=== PATIENT | female | born 1965 | race Caucasian/White ===

== ENCOUNTER 2021-07-11 12:39 | Outpatient (CLI) | payer MEDICAID | END 2021-07-11 12:40 | disposition home or self-care (01) | LOC: BICMAMMO 12:39 | PROVIDERS: ATTEND Nurse Practitioner Family | DX: Z12.31 Encounter for screening mammogram for malignant neoplasm of breast (principal) | CPT/HCPCS: 77067 ==

== ENCOUNTER 2021-10-22 07:23 | Outpatient (CLI) | payer MEDICAID | END 2021-10-22 07:24 | disposition home or self-care (01) | LOC: NM 07:23 | PROVIDERS: ATTEND Internal Medicine Gastroenterology | DX: R11.2 Nausea with vomiting, unspecified (principal); E11.9 Type 2 diabetes mellitus without complications | CPT/HCPCS: 78264; A9541 ==

== ENCOUNTER 2021-10-28 19:00 | Outpatient (CLI) | payer MEDICAID | END 2021-10-28 19:01 | disposition home or self-care (01) | LOC: SLEEPLAB 19:00 | PROVIDERS: ATTEND Family Medicine | DX: G47.9 Sleep disorder, unspecified (principal); G47.33 Obstructive sleep apnea (adult) (pediatric); R53.83 Other fatigue; R09.89 Other specified symptoms and signs involving the circulatory and respiratory systems; R06.83 Snoring; K21.9 Gastro-esophageal reflux disease without esophagitis; I10 Essential (primary) hypertension; E11.9 Type 2 diabetes mellitus without complications; R00.0 Tachycardia, unspecified; E66.9 Obesity, unspecified; Z68.34 Body mass index [BMI] 34.0-34.9, adult | CPT/HCPCS: 95810 ==

== ENCOUNTER 2021-10-31 19:30 | Outpatient (CLI) | payer MEDICAID | END 2021-10-31 19:31 | disposition home or self-care (01) | LOC: SLEEPLAB 19:30 | PROVIDERS: ATTEND Family Medicine | DX: G47.33 Obstructive sleep apnea (adult) (pediatric) (principal); E66.9 Obesity, unspecified; K21.9 Gastro-esophageal reflux disease without esophagitis; R06.83 Snoring; I10 Essential (primary) hypertension; E11.9 Type 2 diabetes mellitus without complications; R53.83 Other fatigue; R09.89 Other specified symptoms and signs involving the circulatory and respiratory systems | CPT/HCPCS: 95811 ==

== ENCOUNTER 2021-11-13 21:35 | Observation (INO) | payer MEDICAID ==
[2021-11-13 23:52] LABS: ALT (SGPT) 32 U/L (8-55); AST (SGOT) 33 U/L (5-34); Alkaline Phosphatase 76 U/L (40-110); Anion Gap 22 mmol/L (10-20); BUN (Urea Nitrogen) 24 mg/dL (9.8-20.1); Bilirubin, Total 0.4 mg/dL (0.2-1.2); Calc. Creatinine Clearance 0 mL/min (70-130); Calcium 9.9 mg/dL (7.8-10.44); Carbon Dioxide 16 mmol/L (22-29); Chloride 98 mmol/L (98-107); Globulin 3.2 g/dL (2.4-3.5); Glucose 199 mg/dL (70-105); Potassium 3.8 mmol/L (3.5-5.1); Protein, Total 7.2 g/dL (6.0-8.3); Sodium 132 mmol/L (136-145)
[2021-11-14 00:07] LABS: Bacteria/HPF 1+ HPF (None Seen); Bilirubin Negative (Negative); Blood, Urine Negative (Negative); Clarity Clear (Clear); Glucose, Urine (Dipstick) 50 mg/dL (Negative); Ketone, Urine Trace mg/dL (Negative); Leukocyte 250 Leu/uL (Negative); Nitrite Negative (Negative); Protein, Urine (Dipstick) Negative (Neg-Trace); RBC/HPF 0-3 HPF (0-3); Specific Gravity, Urine 1.009 (1.002-1.036); Squamous Epithelial 0-3 HPF (0-3); Urobilinogen Normal mg/dL (Less than 2)
[2021-11-14 00:12] LABS: #Basophils 0.1 thou/uL (0.0-0.2); #Eosinphils 0.1 thou/uL (0.0-0.7); #Lymphocytes 2.2 thou/uL (1.20-3.40); #Monocytes 0.7 thou/uL (0.11-0.59); #Neutrophils 2.7 thou/uL (1.40-6.50); %Basophils 0.9 % (0.0-1.0); %Eosinophils 1.9 % (0.0-10.0); %Lymphocytes 38.8 % (21.0-51.0); %Monocytes 11.6 % (0.0-10.0); %Neutrophils 46.9 % (42.0-75.0); Hemoglobin 12.9 g/dL (12.0-16.0); Mean Corpuscular HGB CONC 37.6 g/dL (32.0-36.0); Mean Corpuscular Hemoglobin 33.6 pg (27.0-31.0); Mean Corpuscular Volume 89.2 fL (78.0-98.0); Mean Platelet Volume 6.9 fL (7.4-10.4); Platelet Count 198 thou/uL (130-400); RBC Distribution Width 13.1 % (11.5-14.5); Red Blood Cell (RBC) Count 3.83 mill/uL (4.20-5.40); White Blood Cell (WBC) Count 5.8 thou/uL (4.8-10.8)
[2021-11-14] MEDS ORDERED: cefTRIAXone\\ROCEPHIN 1 GM VIAL ONE (00:52)
[2021-11-14] MEDS ORDERED: SODIUM CHLORIDE 0.9% IV SCH (03:45)
[2021-11-14] MEDS ORDERED: Acetaminophen 325 MG TAB PO PRN (03:45)
[2021-11-14] MEDS ORDERED: Ondansetron PF 4 MG/2 ML Vial IVP PRN (03:45)
[2021-11-14] MEDS ORDERED: Bisacodyl 5 MG TAB PO PRN (03:45)
[2021-11-14] MEDS ORDERED: Senokot S 8.6-50 MG TAB PO PRN (03:45)
[2021-11-14] MEDS ORDERED: Dextrose 5% in Water 1,000 ML IV PRN (04:13)
[2021-11-14] MEDS ORDERED: Dextrose 50% Abboject 50 ML SYRINGE SLOW IVP PRN (04:13)
[2021-11-14] MEDS ORDERED: HumaLOG 300 UNITS/3 ML VIAL SC PRN (04:13)
[2021-11-14 04:20] LABS: Lactic Acid 3.2 mmol/L (0.5-2.2)
[2021-11-14 05:30] VITALS: BMI 35.5
[2021-11-14] MEDS ORDERED: Vancomycin HCl 1.75 GM in Sodium Chloride 0.9% 500 ML IVPB SCH (06:00)
[2021-11-14] MEDS: HumaLOG 300 UNITS/3 ML VIAL SC PRN ×2 (06:11→18:04)
[2021-11-14 07:22] LABS: #Eosinphils 0.1 thou/uL (0.0-0.7); #Monocytes 0.8 thou/uL (0.11-0.59); #Neutrophils 3.8 thou/uL (1.40-6.50); %Basophils 0.7 % (0.0-1.0); %Eosinophils 1.8 % (0.0-10.0); %Lymphocytes 29.7 % (21.0-51.0); %Monocytes 11.7 % (0.0-10.0); %Neutrophils 56.1 % (42.0-75.0); Hemoglobin 11.5 g/dL (12.0-16.0); Mean Corpuscular HGB CONC 33.4 g/dL (32.0-36.0); Mean Corpuscular Hemoglobin 30.1 pg (27.0-31.0); Mean Corpuscular Volume 90.1 fL (78.0-98.0); Platelet Count 165 thou/uL (130-400); RBC Distribution Width 13.2 % (11.5-14.5); Red Blood Cell (RBC) Count 3.83 mill/uL (4.20-5.40); White Blood Cell (WBC) Count 6.8 thou/uL (4.8-10.8)
[2021-11-14 07:43] LABS: Hemoglobin A1c 7.3 % (4.0-6.0)
[2021-11-14 07:45] LABS: ALT (SGPT) 25 U/L (8-55); AST (SGOT) 26 U/L (5-34); Albumin 3.1 g/dL (3.5-5.0); Alkaline Phosphatase 58 U/L (40-110); Anion Gap 16 mmol/L (10-20); BUN (Urea Nitrogen) 18 mg/dL (9.8-20.1); Bilirubin, Total 0.2 mg/dL (0.2-1.2); Calc. Creatinine Clearance 83 mL/min (70-130); Calcium 7.9 mg/dL (7.8-10.44); Carbon Dioxide 16 mmol/L (22-29); Chloride 107 mmol/L (98-107); Globulin 2.3 g/dL (2.4-3.5); Glucose 219 mg/dL (70-105); Potassium 3.6 mmol/L (3.5-5.1); Protein, Total 5.4 g/dL (6.0-8.3); Sodium 135 mmol/L (136-145)
[2021-11-14] MEDS: Heparin 5,000 UNITS/ML VIAL SC SCH ×2 (09:40→20:57)
[2021-11-14] MEDS: Famotidine/PF 20 mg/2ml Vial SLOW IVP SCH (09:41)
[2021-11-14] MEDS: Sodium Chloride 0.9% 1,000 ML IV SCH ×4 (14:30→21:06)
[2021-11-14 17:32] LABS: SARS-CoV-2 PCR by NAA Not Detected (NotDetected)
[2021-11-14] MEDS ORDERED: Carvedilol 25 MG TAB PO SCH (20:00)
[2021-11-14] MEDS: Lisinopril 20 MG TAB PO SCH (20:57)
[2021-11-14] MEDS ORDERED: cefTRIAXone\\ROCEPHIN 2 GM in Sodium Chloride 0.9% 100 ML IVPB SCH (22:00)
[2021-11-14] MEDS ORDERED: diphenhydrAMINE 50 MG/ML VIAL IVP SCH (23:30)
[2021-11-15] MEDS: Sodium Chloride 0.9% 1,000 ML IV SCH (04:25)
[2021-11-15] MEDS ORDERED: Vancomycin 1 GM in Premix Bag 1 BAG IVPB SCH (06:00)
[2021-11-15] MEDS: HumaLOG 300 UNITS/3 ML VIAL SC PRN ×3 (06:10→16:41)
[2021-11-15] MEDS ORDERED: Carvedilol 25 MG TAB PO SCH (08:00)
[2021-11-15] MEDS: Lisinopril 20 MG TAB PO SCH (08:12)
[2021-11-15] MEDS: Famotidine/PF 20 mg/2ml Vial SLOW IVP SCH (08:12)
[2021-11-15] MEDS: Heparin 5,000 UNITS/ML VIAL SC SCH (08:13)
[2021-11-15 11:39] VITALS: TEMP 98
[2021-11-15 12:55] LABS: #Eosinphils 0.1 thou/uL (0.0-0.7); #Lymphocytes 1.3 thou/uL (1.20-3.40); #Monocytes 0.3 thou/uL (0.11-0.59); #Neutrophils 1.8 thou/uL (1.40-6.50); %Basophils 0.2 % (0.0-1.0); %Eosinophils 2.3 % (0.0-10.0); %Lymphocytes 37.6 % (21.0-51.0); %Neutrophils 51.8 % (42.0-75.0); Mean Corpuscular HGB CONC 35.5 g/dL (32.0-36.0); Mean Corpuscular Hemoglobin 32.3 pg (27.0-31.0); Mean Corpuscular Volume 91.1 fL (78.0-98.0); Mean Platelet Volume 7.1 fL (7.4-10.4); Platelet Count 154 thou/uL (130-400); RBC Distribution Width 13.2 % (11.5-14.5); Red Blood Cell (RBC) Count 3.71 mill/uL (4.20-5.40); White Blood Cell (WBC) Count 3.4 thou/uL (4.8-10.8)
[2021-11-15 13:20] LABS: Troponin I 0.027 ng/mL (< 0.028)
[2021-11-15 13:23] LABS: Anion Gap 16 mmol/L (10-20); BUN (Urea Nitrogen) 5 mg/dL (9.8-20.1); Calc. Creatinine Clearance 103 mL/min (70-130); Calcium 9.7 mg/dL (7.8-10.44); Carbon Dioxide 20 mmol/L (22-29); Chloride 103 mmol/L (98-107); Glucose 244 mg/dL (70-105); Potassium 4.3 mmol/L (3.5-5.1); Sodium 135 mmol/L (136-145)
[2021-11-15 14:20] VITALS: BP 164/97
== END 2021-11-15 16:50 | disposition home or self-care (01) ==
LOC: ERS 21:35 → SURG A 11-14 03:04
PROVIDERS: ADMIT Student in an Organized Health Care Education/Training Program; ATTEND Internal Medicine
DX: A41.9 Sepsis, unspecified organism (principal); N30.00 Acute cystitis without hematuria; R65.20 Severe sepsis without septic shock; E11.65 Type 2 diabetes mellitus with hyperglycemia; I95.9 Hypotension, unspecified; N17.9 Acute kidney failure, unspecified; E11.10 Type 2 diabetes mellitus with ketoacidosis without coma; E11.42 Type 2 diabetes mellitus with diabetic polyneuropathy; I10 Essential (primary) hypertension; K21.9 Gastro-esophageal reflux disease without esophagitis; Z87.891 Personal history of nicotine dependence; Z79.4 Long term (current) use of insulin; Z79.899 Other long term (current) drug therapy; Z88.2 Allergy status to sulfonamides; Z88.5 Allergy status to narcotic agent; Z88.8 Allergy status to other drugs, medicaments and biological substances; Z91.040 Latex allergy status; Z20.822 Contact with and (suspected) exposure to COVID-19
CPT/HCPCS: 36415; 36416; 80048; 80053; 81003; 81015; 83036; 83605; 84484; 85025; 87086; 93005; 93010; 96365; 96366; 96372; 96375; 96376; G0378; J0696; J1200; J1644; J1815; J2405; J3370; J3490; J7030; J7050; S0028; U0003; U0005

== ENCOUNTER 2022-08-10 11:09 | Emergency (ER) | payer OTHER ==
[~2022-08-10 11:09] MED LIST: Iopamidol-370 76% 500 ML 1 ML ONE
[2022-08-10 12:21] LABS: Actual Bicarbonate (HCO3v) 25 mEq/L (22-28); Base Excess 0.8 mEq/L (-2.0 to +3.0); Calcium, Ionized (venous) 1.07 mmol/L (1.16-1.32); Chloride (VBG) 99 mmol/L (98-106); Hemoglobin (Hb) 14.4 g/dL (11.7-16.0); Potassium (VBG) 3.97 mmol/L (3.70-5.30); pH (venous) 7.45 (7.32-7.43)
[2022-08-10 12:32] LABS: Bilirubin Negative (Negative); Blood, Urine Negative (Negative); Clarity Clear (Clear); Glucose, Urine (Dipstick) 300 mg/dL (Negative); Ketone, Urine 20 mg/dL (Negative); Leukocyte Negative Leu/uL (Negative); Nitrite Negative (Negative); Protein, Urine (Dipstick) Negative (Neg-Trace); Specific Gravity, Urine 1.015 (1.002-1.036); Urobilinogen Normal mg/dL (Less than 2); pH, Urine 5.5 (5.0-9.0)
[2022-08-10 12:42] LABS: #Eosinphils 0.1 thou/uL (0.0-0.7); #Lymphocytes 1.8 thou/uL (1.20-3.40); #Monocytes 0.4 thou/uL (0.11-0.59); %Basophils 0.8 % (0.0-1.0); %Eosinophils 2.3 % (0.0-10.0); %Lymphocytes 33.1 % (21.0-51.0); %Neutrophils 55.8 % (42.0-75.0); Hemoglobin 14.5 g/dL (12.0-16.0); Mean Corpuscular HGB CONC 35.6 g/dL (32.0-36.0); Mean Corpuscular Hemoglobin 32.1 pg (27.0-31.0); Mean Platelet Volume 7.5 fL (7.4-10.4); Platelet Count 204 thou/uL (130-400); RBC Distribution Width 13.4 % (11.5-14.5); Red Blood Cell (RBC) Count 4.52 mill/uL (4.20-5.40); White Blood Cell (WBC) Count 5.5 thou/uL (4.8-10.8)
[2022-08-10] MEDS ORDERED: Pantoprazole 40 MG VIAL ONE (12:50)
[2022-08-10 13:04] LABS: ALT (SGPT) 27 U/L (8-55); AST (SGOT) 33 U/L (5-34); Albumin 4.4 g/dL (3.5-5.0); Alkaline Phosphatase 61 U/L (40-110); Anion Gap 24 mmol/L (10-20); BUN (Urea Nitrogen) 12 mg/dL (9.8-20.1); Bilirubin, Total 0.6 mg/dL (0.2-1.2); Calc. Creatinine Clearance 0 mL/min (70-130); Calcium 9.5 mg/dL (7.8-10.44); Carbon Dioxide 20 mmol/L (22-29); Chloride 98 mmol/L (98-107); Estimated GFR 70; Globulin 3.8 g/dL (2.4-3.5); Glucose 233 mg/dL (70-105); Lipase 23 U/L (8-78); Potassium 4.5 mmol/L (3.5-5.1); Protein, Total 8.2 g/dL (6.0-8.3); Sodium 137 mmol/L (136-145)
== END 2022-08-10 14:45 | disposition home or self-care (01) ==
LOC: ERS 11:09
DX: E11.65 Type 2 diabetes mellitus with hyperglycemia (principal); E86.0 Dehydration; I10 Essential (primary) hypertension; E11.40 Type 2 diabetes mellitus with diabetic neuropathy, unspecified; Z79.4 Long term (current) use of insulin; R59.0 Localized enlarged lymph nodes
CPT/HCPCS: 36415; 74177; 76536; 80053; 81003; 82010; 82805; 83690; 85025; 93005; 94760; 96361; 96365; C9113; Q9967

== ENCOUNTER 2022-10-10 11:17 | Observation (INO) | payer OTHER ==
[2022-10-10] MEDS ORDERED: Iopamidol-370 76% 500 ML 1 ML ONE (11:38)
[2022-10-10 11:56] LABS: #Eosinphils 0.1 thou/uL (0.0-0.7); #Lymphocytes 1.5 thou/uL (1.20-3.40); #Monocytes 0.5 thou/uL (0.11-0.59); #Neutrophils 3.7 thou/uL (1.40-6.50); %Basophils 0.3 % (0.0-1.0); %Eosinophils 1.3 % (0.0-10.0); %Lymphocytes 25.9 % (21.0-51.0); %Neutrophils 64.4 % (42.0-75.0); Hemoglobin 12.7 g/dL (12.0-16.0); Mean Corpuscular HGB CONC 35.3 g/dL (32.0-36.0); Mean Corpuscular Hemoglobin 33.3 pg (27.0-31.0); Mean Corpuscular Volume 94.4 fl (78.0-98.0); Mean Platelet Volume 6.9 fL (7.4-10.4); Platelet Count 213 10x3/uL (130-400); RBC Distribution Width 14.1 % (11.5-14.5); Red Blood Cell (RBC) Count 3.82 mill/uL (4.20-5.40); White Blood Cell (WBC) Count 5.7 10x3/uL (4.8-10.8)
[2022-10-10] MEDS ORDERED: Ondansetron PF 4 MG/2 ML Vial ONE (11:58)
[2022-10-10 12:02] LABS: ALT (SGPT) 15 U/L (8-55); AST (SGOT) 40 U/L (5-34); Albumin 4.1 g/dL (3.5-5.0); Alkaline Phosphatase 67 U/L (40-110); Anion Gap 23 mmol/L (10-20); BUN (Urea Nitrogen) 12 mg/dL (9.8-20.1); Bilirubin, Total 0.5 mg/dL (0.2-1.2); Calc. Creatinine Clearance 0 mL/min (70-130); Calcium 9.1 mg/dL (7.8-10.44); Carbon Dioxide 20 mmol/L (22-29); Chloride 95 mmol/L (98-107); Estimated GFR 57; Globulin 3.2 g/dL (2.4-3.5); Glucose 220 mg/dL (70-105); Potassium 3.8 mmol/L (3.5-5.1); Protein, Total 7.3 g/dL (6.0-8.3); Sodium 134 mmol/L (136-145)
[2022-10-10 12:09] LABS: Actual Bicarbonate (HCO3v) 23 mEq/L (22-28); Base Excess -1.8 mEq/L (-2.0 to +3.0); Calcium, Ionized (venous) 1.07 mmol/L (1.16-1.32); Chloride (VBG) 96 mmol/L (98-106); Hemoglobin (Hb) 13.5 g/dL (11.7-16.0); Potassium (VBG) 3.89 mmol/L (3.70-5.30); Sodium 135.7 mmol/L (133-146)
[2022-10-10 13:01] LABS: Bilirubin Negative (Negative); Blood, Urine Negative (Negative); Glucose, Urine (Dipstick) 100 mg/dL (Negative); Ketone, Urine 60 mg/dL (Negative); Leukocyte Negative Leu/uL (Negative); Nitrite Negative (Negative); Protein, Urine (Dipstick) Negative (Neg-Trace); Specific Gravity, Urine 1.015 (1.002-1.036); Urobilinogen Normal mg/dL (Less than 2)
[2022-10-10 13:08] LABS: Clarity Hazy (Clear)
[2022-10-10] MEDS ORDERED: Enoxaparin Sodium 40 MG/0.4 ML SYRINGE SC SCH (13:45)
[2022-10-10] MEDS ORDERED: INSULIN REGULAR IN 0.9 % NACL 100 UNIT/100 ML BAG ONE (14:02)
[2022-10-10 14:32] LABS: Hemoglobin A1c 6.6 % (4.0-6.0)
[2022-10-10 15:05] LABS: Anion Gap 21 mmol/L (10-20); BUN (Urea Nitrogen) 9 mg/dL (9.8-20.1); Calc. Creatinine Clearance 0 mL/min (70-130); Carbon Dioxide 20 mmol/L (22-29); Chloride 98 mmol/L (98-107); Estimated GFR 61; Glucose 154 mg/dL (70-105); Potassium 3.7 mmol/L (3.5-5.1); Sodium 135 mmol/L (136-145)
[2022-10-10] MEDS: Sodium Chloride 0.9% 1,000 ML IV SCH ×3 (18:07→19:21)
[2022-10-10 18:46] LABS: Lactic Acid 2.3 mmol/L (0.5-2.2)
[2022-10-10] MEDS: Ondansetron PF 4 MG/2 ML Vial IVP PRN (20:02)
[2022-10-10 20:14] VITALS: BMI 37.4
[2022-10-10] MEDS ORDERED: Metoclopramide HCl 10 MG/2 ML VIAL IVP SCH (22:00)
[2022-10-10] MEDS ORDERED: HYDROcodone/Acetaminophen 5/325 mg Tablet PO SCH (23:00)
[2022-10-11] MEDS: Sodium Chloride 0.9% 1,000 ML IV SCH ×2 (01:59→08:43)
[2022-10-11] MEDS: HYDROcodone/Acetaminophen 5/325 mg Tablet PO PRN ×2 (04:41→11:43)
[2022-10-11] MEDS: Ondansetron PF 4 MG/2 ML Vial IVP PRN (05:33)
[2022-10-11 07:45] LABS: Anion Gap 15 mmol/L (10-20); BUN (Urea Nitrogen) 4 mg/dL (9.8-20.1); Calc. Creatinine Clearance 106 mL/min (70-130); Calcium 8.2 mg/dL (7.8-10.44); Carbon Dioxide 23 mmol/L (22-29); Chloride 104 mmol/L (98-107); Estimated GFR 80; Glucose 175 mg/dL (70-105); Potassium 3.3 mmol/L (3.5-5.1); Sodium 139 mmol/L (136-145)
[2022-10-11] MEDS ORDERED: Enoxaparin Sodium 40 MG/0.4 ML SYRINGE SC SCH (09:00)
[2022-10-11] MEDS ORDERED: Pantoprazole 40 MG VIAL IVP SCH (09:00)
[2022-10-11] MEDS ORDERED: Insulin Regular 300 UNITS/3 ML VIAL SC PRN ×2 (09:21)
[2022-10-11] MEDS ORDERED: Dextrose 50% Abboject 50 ML SYRINGE SLOW IVP PRN (09:21)
[2022-10-11] MEDS ORDERED: Dextrose 5% in Water 1,000 ML IV PRN (09:21)
[2022-10-11 09:46] LABS: Magnesium 1.2 mg/dL (1.6-2.6)
[2022-10-11] MEDS ORDERED: Electrolyte Replacement Protocol FS PRN (11:00)
[2022-10-11] MEDS ORDERED: Electrolyte Replacement Protocol 1 EACH FS SCH (11:00)
[2022-10-11] MEDS ORDERED: Magnesium Sulfate In Water 4 GM in Premix Bag 1 BAG IVPB SCH (11:00)
[2022-10-11 11:36] VITALS: BP 163/89; TEMP 98.2
[2022-10-11] MEDS ORDERED: K-Phos Neutral 250 MG TAB PO SCH (12:00)
[2022-10-11] MEDS ORDERED: Potassium Chloride 20 MEQ TAB PO SCH (12:15)
[2022-10-11] MEDS ORDERED: Sodium Chloride 0.9% 1,000 ML IV SCH (15:08)
[2022-10-11] MEDS ORDERED: Carvedilol 25 MG TAB PO SCH (17:00)
== END 2022-10-11 16:36 | disposition home or self-care (01) ==
LOC: ERS 11:17 → SUATTDRO 11:17 → T4-A 13:44
PROVIDERS: ADMIT Internal Medicine; ATTEND Internal Medicine
DX: E86.0 Dehydration (principal); R11.2 Nausea with vomiting, unspecified; E87.6 Hypokalemia; E87.1 Hypo-osmolality and hyponatremia; E83.39 Other disorders of phosphorus metabolism; E11.10 Type 2 diabetes mellitus with ketoacidosis without coma; E11.65 Type 2 diabetes mellitus with hyperglycemia; E11.40 Type 2 diabetes mellitus with diabetic neuropathy, unspecified; I10 Essential (primary) hypertension; K21.9 Gastro-esophageal reflux disease without esophagitis; K76.0 Fatty (change of) liver, not elsewhere classified; E66.9 Obesity, unspecified; Z68.37 Body mass index [BMI] 37.0-37.9, adult; Z87.891 Personal history of nicotine dependence; Z79.4 Long term (current) use of insulin; Z79.899 Other long term (current) drug therapy; Z88.2 Allergy status to sulfonamides; Z88.5 Allergy status to narcotic agent; Z88.8 Allergy status to other drugs, medicaments and biological substances; Z91.040 Latex allergy status; Z96.41 Presence of insulin pump (external) (internal); Z20.822 Contact with and (suspected) exposure to COVID-19
CPT/HCPCS: 36415; 36416; 74177; 80048; 80053; 81003; 82010; 82805; 83036; 83605; 83690; 83735; 84100; 84145; 84484; 85025; 85652; 86140; 93005; 96361; 96374; 96375; 96376; C9113; G0378; J1815; J2405; J3475; J7050; Q9967; U0003; U0005

== ENCOUNTER 2022-12-17 12:00 | Emergency (ER) | payer OTHER ==
[2022-12-17] MEDS ORDERED: HYDROcodone/Acetaminophen 10/325 mg Tablet ONE (13:09)
[2022-12-17 13:24] LABS: #Eosinphils 0.1 thou/uL (0.0-0.7); #Lymphocytes 1.7 thou/uL (1.20-3.40); #Monocytes 0.8 thou/uL (0.11-0.59); #Neutrophils 3.9 thou/uL (1.40-6.50); %Basophils 0.4 % (0.0-1.0); %Monocytes 11.6 % (0.0-10.0); %Neutrophils 60.1 % (42.0-75.0); Hemoglobin 13.3 g/dL (12.0-16.0); Mean Corpuscular HGB CONC 35.2 g/dL (32.0-36.0); Mean Corpuscular Hemoglobin 32.8 pg (27.0-31.0); Mean Corpuscular Volume 93.3 fl (78.0-98.0); Mean Platelet Volume 7.5 fL (7.4-10.4); Platelet Count 175 10x3/uL (130-400); RBC Distribution Width 14.6 % (11.5-14.5); Red Blood Cell (RBC) Count 4.04 mill/uL (4.20-5.40); White Blood Cell (WBC) Count 6.5 10x3/uL (4.8-10.8)
[2022-12-17 13:49] LABS: ALT (SGPT) 36 U/L (8-55); AST (SGOT) 52 U/L (5-34); Albumin 4.2 g/dL (3.5-5.0); Alkaline Phosphatase 67 U/L (40-110); Anion Gap 17 mmol/L (10-20); BUN (Urea Nitrogen) 11 mg/dL (9.8-20.1); Bilirubin, Total 0.7 mg/dL (0.2-1.2); Calc. Creatinine Clearance 0 mL/min (70-130); Calcium 9.1 mg/dL (7.8-10.44); Carbon Dioxide 26 mmol/L (22-29); Estimated GFR 85; Globulin 3.2 g/dL (2.4-3.5); Glucose 180 mg/dL (70-105); Potassium 3.3 mmol/L (3.5-5.1); Protein, Total 7.4 g/dL (6.0-8.3); Sodium 135 mmol/L (136-145)
[2022-12-17 14:06] LABS: Chloride 95 mmol/L (98-107)
== END 2022-12-17 14:38 | disposition home or self-care (01) ==
LOC: ERS 12:00
DX: S60.211A Contusion of right wrist, initial encounter (principal); E11.40 Type 2 diabetes mellitus with diabetic neuropathy, unspecified; I10 Essential (primary) hypertension; W18.30XA Fall on same level, unspecified, initial encounter; Z87.891 Personal history of nicotine dependence
CPT/HCPCS: 36415; 70450; 70486; 80053; 84484; 85025; 93005

== ENCOUNTER 2023-08-30 16:22 | Emergency (ER) | payer OTHER ==
[~2023-08-30 16:22] MED LIST changes: -Iopamidol-370 76% 500 ML 1 ML ONE; +Iopamidol-370 76% 500 ML MDV (1 ML CHARGE) ONE
[2023-08-30 16:50] LABS: Hematocrit 37.9 % (36.0-47.0); Hemoglobin 13.2 g/dL (12.0-16.0); Manual Diff?? YES; Mean Corpuscular HGB CONC 34.8 g/dL (32.0-36.0); Mean Corpuscular Hemoglobin 34.4 pg (27.0-31.0); Mean Corpuscular Volume 98.7 fl (78.0-98.0); Mean Platelet Volume 9.6 fL (7.4-10.4); Platelet Count 165 10x3/uL (130-400); RBC Distribution Width 14.5 % (11.5-14.5); Red Blood Cell (RBC) Count 3.84 mill/uL (4.20-5.40); White Blood Cell (WBC) Count 4.1 10x3/uL (4.8-10.8)
[2023-08-30 17:09] LABS: Delete Auto Diff?? YES
[2023-08-30 17:12] LABS: Troponin I Less than 0.010 ng/mL (< 0.028)
[2023-08-30 17:13] LABS: Acetaminophen Less than 10 mcg/mL (10.0-30.0); Alcohol 380.5 mg/dL (Less than 10); Lipase 91 U/L (8-78); Salicylate Less than 8.0 mg/dL (15.0-30.0)
[2023-08-30 17:17] LABS: ALT (SGPT) 48 U/L (8-55); AST (SGOT) 163 U/L (5-34); Alkaline Phosphatase 92 U/L (40-110); Anion Gap 27 mmol/L (10-20); BUN (Urea Nitrogen) 10 mg/dL (9.8-20.1); Bilirubin, Total 0.4 mg/dL (0.2-1.2); CK (CPK) 74 U/L (29-168); Calc. Creatinine Clearance 0 mL/min (70-130); Calcium 9.5 mg/dL (7.8-10.44); Carbon Dioxide 19 mmol/L (22-29); Chloride 97 mmol/L (98-107); Estimated GFR 99; Globulin 3.6 g/dL (2.4-3.5); Glucose 139 mg/dL (70-105); Potassium 2.9 mmol/L (3.5-5.1); Protein, Total 7.6 g/dL (6.0-8.3); Sodium 140 mmol/L (136-145)
[2023-08-30 17:21] LABS: Actual Bicarbonate (HCO3a) 20.3 mEq/L (22-28); Analyzer IN Cardio ER; Base Excess (BEa) -3.6 mEq/L (-2.0 to +3.0); CO2 Tension 33.5 mmHg (35.0-45.0); Calcium, Ionized (arterial) 1.07 mmol/L (1.12-1.30); Carboxyhemoglobin (COHb) 0.3 gm% (0.0-3.0); Hematocrit-ABG 39 % (36.0-47.0); Hemoglobin (Hb) 13.1 g/dL (12.0-16.0); O2 Tension (PaO2), arterial 93.1 mmHg (> 80.0); pH, Arterial 7.401 (7.35-7.45)
[2023-08-30 17:22] LABS: Bacteria/HPF None Seen HPF (None Seen); Bilirubin Negative (Negative); Blood, Urine 1+ (Negative); CAUTI Indications for Culture Alt mental st,lethar; Clarity Clear (Clear); Glucose, Urine (Dipstick) Normal (Negative); Ketone, Urine Trace mg/dL (Negative); Leukocyte Negative Leu/uL (Negative); Nitrite Negative (Negative); Protein, Urine (Dipstick) Negative (Neg-Trace); RBC/HPF 0-3 HPF (0-3); Specific Gravity, Urine 1.012 (1.002-1.036); Squamous Epithelial 0-3 HPF (0-3); Urobilinogen Normal mg/dL (Less than 2); WBC/HPF 0-3 HPF (0-3); pH, Urine 5.5 (5.0-9.0)
[2023-08-30 17:24] LABS: ALV-art Gradient 14.755 mmHg (0-20); Potassium - ABG Lab 2.46 mmol/L (3.70-5.30); Puncture Site RRA
[2023-08-30 17:31] LABS: Urine Culture Reflex No No
[2023-08-30 17:35] LABS: Amphetamine Not Detected (NotDetected); Barbiturates Screen Not Detected (NotDetected); Benzodiazepine Screen Not Detected (NotDetected); Cocaine Metabolite Screen Not Detected (NotDetected); Methadone Not Detected (NotDetected); Methamphetamine Not Detected (NotDetected); Opiate Screen Not Detected (NotDetected); Oxycodone Screen Not Detected (NotDetected); Phencyclidine (PCP) Not Detected (NotDetected); THC/Cannabinoid Screen Not Detected (NotDetected); Tricyclic Screen Not Detected (NotDetected)
[2023-08-30 17:39] LABS: Band 3 % (5-11); CellaVision Operator ID LAB.KB; Eosinophils 4 % (0-10); Lymphocytes 30 % (21-51); Monocytes 11 % (0-10); Neutrophil 43 % (42-75); Nucleated RBC (Manual Ct) 1 % (0); Platelet Adequacy Comment Platelets Normal; Polychromasia SLIGHT = 2-3 cells HPF (0-2); Reactive Lymphocytes 7 % (0-10); Stomatocytes SLIGHT = 2-5 cells HPF (0-1); Total Cell Count 100
[2023-08-30 18:32] LABS: SARS-CoV-2 NAA Rapid Test Not Detected (NotDetected)
== END 2023-08-30 19:48 | disposition home or self-care (01) ==
LOC: ERS 16:22
DX: R41.82 Altered mental status, unspecified (principal); F10.129 Alcohol abuse with intoxication, unspecified; E11.40 Type 2 diabetes mellitus with diabetic neuropathy, unspecified; I10 Essential (primary) hypertension; Z87.891 Personal history of nicotine dependence
CPT/HCPCS: 0240U; 36600; 70450; 70496; 70498; 71045; 80306; 80307; 81001; 82010; 82140; 82550; 82805; 82962; 83690; 84484; 87040; 87086; 93005; 36415; 36416; 51701; 80053; 84443; 85025; 96361; 96365; J3411; Q9967

== ENCOUNTER 2024-02-14 16:37 | Inpatient (IN) | payer OTHER, MEDICAID ==
[2024-02-14 17:47] LABS: #Basophils 0.04 10x3/uL (0.0-0.2); %Basophils 0.5 % (0.0-1.0); %Eosinophils 0.8 % (0.0-10.0); %Lymphocytes 13.2 % (21.0-51.0); %Monocytes 19.1 % (0.0-10.0); %Neutrophils 65.6 % (42.0-75.0); Hemoglobin 13.1 g/dL (12.0-16.0); Mean Corpuscular HGB CONC 33.6 g/dL (32.0-36.0); Mean Corpuscular Hemoglobin 34.7 pg (27.0-31.0); Mean Corpuscular Volume 103.4 fL (78.0-98.0); Mean Platelet Volume 9.8 fL (7.4-10.4); Platelet Count 207 10x3/uL (130-400); Red Blood Cell (RBC) Count 3.77 mill/uL (4.20-5.40)
[2024-02-14 18:06] LABS: ALT (SGPT) 25 U/L (8-55); AST (SGOT) 172 U/L (5-34); Albumin 3.4 g/dL (3.5-5.0); Alkaline Phosphatase 203 U/L (40-110); Anion Gap 22 mmol/L (10-20); BUN (Urea Nitrogen) Less than 4 mg/dL (9.8-20.1); Bilirubin, Total 2.1 mg/dL (0.2-1.2); Calc. Creatinine Clearance 0 mL/min (70-130); Calcium 8.9 mg/dL (7.8-10.44); Carbon Dioxide 31 mmol/L (22-29); Chloride 83 mmol/L (98-107); Estimated GFR 99; Globulin 3.5 g/dL (2.4-3.5); Glucose 190 mg/dL (70-105); Lipase 30 U/L (8-78); Protein, Total 6.9 g/dL (6.0-8.3); Sodium 133 mmol/L (136-145)
[2024-02-14 18:09] LABS: Critical Call Chemistry NUR..BCB @1808; Potassium 2.5 mmol/L (3.5-5.1)
[2024-02-14 18:39] LABS: Magnesium 1.5 mg/dL (1.6-2.6)
[2024-02-14] MEDS ORDERED: Potassium Chloride 20 MEQ (100 mL) BAG ONE ×2 (18:51→19:16)
[2024-02-14] MEDS ORDERED: Ketorolac Tromethamine 30 MG (1 mL) VIAL ONE (18:51)
[2024-02-14] MEDS ORDERED: Magnesium 2 GM/50 ML BAG (IN WATER) ONE (19:24)
[2024-02-14 19:28] LABS: Bacteria/HPF None Seen HPF (None Seen); Bilirubin Negative (Negative); Blood, Urine Negative (Negative); CAUTI Indications for Culture Dysuria,urgency,freq; Clarity Clear (Clear); Glucose, Urine (Dipstick) Normal (Negative); Ketone, Urine 40 mg/dL (Negative); Leukocyte Negative Leu/uL (Negative); Nitrite Negative (Negative); Protein, Urine (Dipstick) Negative (Neg-Trace); RBC/HPF 0-3 HPF (0-3); Specific Gravity, Urine 1.006 (1.002-1.036); Squamous Epithelial 0-3 HPF (0-3); Urobilinogen Normal mg/dL (Less than 2); WBC/HPF None Seen HPF (0-3); pH, Urine 6.5 (5.0-9.0)
[2024-02-14 19:29] LABS: Urine Culture Reflex No No
[2024-02-14] MEDS ORDERED: Ondansetron PF 4 MG/2 ML Vial ONE (20:15)
[2024-02-14] MEDS ORDERED: Glucagon 1 MG/ML KIT IM PRN (21:17)
[2024-02-14] MEDS ORDERED: Dextrose 5% in Water 1,000 ML IV PRN (21:17)
[2024-02-14] MEDS ORDERED: Potassium Bicarbonate/Cit Ac 20 MEQ TAB ONE (21:17)
[2024-02-14] MEDS ORDERED: Dextrose 50% Abboject 50 ML SYRINGE SLOW IVP PRN (21:17)
[2024-02-14] MEDS ORDERED: Simethicone Chewable 80 MG TAB PO PRN (21:20)
[2024-02-14 22:01] LABS: Critical Call Chemistry NUR.KB14@2200; Phosphorus 1.4 mg/dL (2.3-4.7)
[2024-02-14] MEDS ORDERED: Electrolyte Replacement Protocol 1 EACH FS PRN (22:15)
[2024-02-14] MEDS: Polyethylene Glycol 3350 17 GM Packet PO SCH (22:49)
[2024-02-14 23:05] LABS: Lactic Acid 2.1 mmol/L (0.5-2.2)
[2024-02-14 23:19] VITALS: BMI 33.0
[2024-02-15 01:18] LABS: Anion Gap 19 mmol/L (10-20); BUN (Urea Nitrogen) Less than 4 mg/dL (9.8-20.1); Calc. Creatinine Clearance 103 mL/min (70-130); Carbon Dioxide 31 mmol/L (22-29); Chloride 87 mmol/L (98-107); Estimated GFR 91; Glucose 169 mg/dL (70-105); Potassium 2.9 mmol/L (3.5-5.1); Sodium 134 mmol/L (136-145)
[2024-02-15] MEDS: PHOS-NAK 1 PKT PACK PO SCH (01:38)
[2024-02-15 04:31] LABS: Hematocrit 34.2 % (36.0-47.0); Hemoglobin 11.6 g/dL (12.0-16.0); Mean Corpuscular HGB CONC 33.9 g/dL (32.0-36.0); Mean Corpuscular Hemoglobin 34.6 pg (27.0-31.0); Mean Corpuscular Volume 102.1 fL (78.0-98.0); Mean Platelet Volume 11.1 fL (7.4-10.4); Platelet Count 218 10x3/uL (130-400); RBC Distribution Width 16.5 % (11.5-14.5); Red Blood Cell (RBC) Count 3.35 mill/uL (4.20-5.40)
[2024-02-15 05:12] LABS: ALT (SGPT) 21 U/L (8-55); AST (SGOT) 159 U/L (5-34); Albumin 3.1 g/dL (3.5-5.0); Alkaline Phosphatase 179 U/L (40-110); Anion Gap 21 mmol/L (10-20); BUN (Urea Nitrogen) Less than 4 mg/dL (9.8-20.1); Bilirubin, Total 2.6 mg/dL (0.2-1.2); Calc. Creatinine Clearance 109 mL/min (70-130); Carbon Dioxide 28 mmol/L (22-29); Chloride 89 mmol/L (98-107); Critical Call Chemistry NUR.MA16@0510; Estimated GFR 97; Globulin 3.6 g/dL (2.4-3.5); Glucose 170 mg/dL (70-105); Phosphorus 1.4 mg/dL (2.3-4.7); Potassium 3.6 mmol/L (3.5-5.1); Protein, Total 6.7 g/dL (6.0-8.3); Sodium 134 mmol/L (136-145)
[2024-02-15 05:14] LABS: Band 12 % (5-11); Eosinophils 2 % (0-10); Large Platelets 2.9 % (0-5); Lymphocytes 8 % (21-51); Macrocytosis SLIGHT = 6-15 cells HPF (0-5); Monocytes 17 % (0-10); Neutrophil 61 % (42-75); Platelet Adequacy Comment Platelets Normal; Polychromasia SLIGHT = 2-3 cells HPF (0-2); Reactive Lymphocytes 1 % (0-10); Smudge Cells 19.2 %
[2024-02-15] MEDS: Potassium Chloride 20 MEQ in Premix 1 BAG IVPB SCH (05:45)
[2024-02-15] MEDS: Magnesium 2 GM/50 ML(in water) 2 GM in Premix 1 BAG IVPB SCH (09:33)
[2024-02-15] MEDS: Senokot S 8.6-50 MG TAB PO SCH (09:33)
[2024-02-15] MEDS: Polyethylene Glycol 3350 17 GM Packet PO SCH (09:33)
[2024-02-15] MEDS: Ondansetron PF 4 MG/2 ML Vial IVP PRN (09:40)
[2024-02-15 11:01] LABS: HBSAg Index 0.25 S/CO (0-0.99); Hep B Surf Ag Non-Reactive S/CO (NonReactive)
[2024-02-15 11:02] LABS: Hep C IgG Ab Non-Reactive S/CO (NonReactive); Hep C Index 0.21 S/CO (0-0.79)
[2024-02-15 11:03] LABS: Hep A IgM AB Non-Reactive (NonReactive); Hep A IgM S/CO 0.15 S/CO (0-0.79)
[2024-02-15] MEDS: Acetaminophen 325 MG TAB PO PRN (13:00)
[2024-02-15] MEDS ORDERED: Albuterol 200 PUFF INH INH ONE (22:24)
[2024-02-15] MEDS: Albuterol 200 PUFF (6.7GM INHALER) INH PRN (22:24)
[2024-02-16] MEDS ORDERED: Albuterol 200 PUFF INH INH ONE ×2 (05:08→18:41)
[2024-02-16 05:24] LABS: #Basophils 0.03 10x3/uL (0.0-0.2); %Basophils 0.4 % (0.0-1.0); %Eosinophils 1.3 % (0.0-10.0); %Lymphocytes 17.2 % (21.0-51.0); %Monocytes 18.9 % (0.0-10.0); %Neutrophils 61.6 % (42.0-75.0); ALT (SGPT) 19 U/L (8-55); AST (SGOT) 127 U/L (5-34); Alkaline Phosphatase 181 U/L (40-110); Anion Gap 16 mmol/L (10-20); BUN (Urea Nitrogen) Less than 4 mg/dL (9.8-20.1); Bilirubin, Total 2.5 mg/dL (0.2-1.2); Calc. Creatinine Clearance 123 mL/min (70-130); Calcium 8.1 mg/dL (7.8-10.44); Carbon Dioxide 31 mmol/L (22-29); Chloride 94 mmol/L (98-107); Estimated GFR 101; Globulin 2.9 g/dL (2.4-3.5); Glucose 170 mg/dL (70-105); Hematocrit 36.4 % (36.0-47.0); Hemoglobin 11.8 g/dL (12.0-16.0); Magnesium 1.8 mg/dL (1.6-2.6); Mean Corpuscular HGB CONC 32.4 g/dL (32.0-36.0); Mean Corpuscular Hemoglobin 34.4 pg (27.0-31.0); Mean Corpuscular Volume 106.1 fL (78.0-98.0); Mean Platelet Volume 10.2 fL (7.4-10.4); Platelet Count 177 10x3/uL (130-400); Potassium 2.9 mmol/L (3.5-5.1); Protein, Total 5.9 g/dL (6.0-8.3); RBC Distribution Width 17.6 % (11.5-14.5); Red Blood Cell (RBC) Count 3.43 mill/uL (4.20-5.40); Sodium 138 mmol/L (136-145)
[2024-02-16] MEDS: Potassium Chloride 20 MEQ TAB PO SCH (08:09)
[2024-02-16] MEDS: Magnesium 2 GM/50 ML(in water) 2 GM in Premix 1 BAG IVPB SCH (08:10)
[2024-02-16] MEDS: Magnesium Oxide 400 MG TAB PO SCH (08:26)
[2024-02-16] MEDS: Potassium Bicarbonate/Cit Ac 20 MEQ TAB PO SCH (08:26)
[2024-02-16] MEDS: PHOS-NAK 1 PKT PACK PO SCH (08:27)
[2024-02-16] MEDS: Fluticasone Propionate Nasal Spray 16 gm Bottle NASAL SCH (08:27)
[2024-02-16] MEDS ORDERED: Non-Formulary Item 1 EACH (Magnesium Oxide [Magnesium Oxide] 400 MG Tablet) PO SCH (09:00)
[2024-02-16] MEDS ORDERED: PHOS-NAK 1 PKT PACK PO SCH (09:00)
[2024-02-16 09:24] LABS: Hemoglobin A1c 5.2 % (4.0-6.0)
[2024-02-16] MEDS: Sodium Chloride 0.9% 1,000 ML IV SCH (15:38)
[2024-02-16] MEDS: HumaLOG 300 UNITS/3 ML VIAL SC PRN (22:06)
[2024-02-17 06:17] LABS: Hematocrit 33.1 % (36.0-47.0); Hemoglobin 10.8 g/dL (12.0-16.0); Mean Corpuscular HGB CONC 32.6 g/dL (32.0-36.0); Mean Corpuscular Hemoglobin 35.1 pg (27.0-31.0); Mean Corpuscular Volume 107.5 fL (78.0-98.0); Platelet Count 191 10x3/uL (130-400); RBC Distribution Width 18.4 % (11.5-14.5); Red Blood Cell (RBC) Count 3.08 mill/uL (4.20-5.40)
[2024-02-17 06:18] LABS: ALT (SGPT) 17 U/L (8-55); AST (SGOT) 139 U/L (5-34); Albumin 2.7 g/dL (3.5-5.0); Alkaline Phosphatase 156 U/L (40-110); Anion Gap 10 mmol/L (10-20); BUN (Urea Nitrogen) Less than 4 mg/dL (9.8-20.1); Bilirubin, Total 3.9 mg/dL (0.2-1.2); Calc. Creatinine Clearance 121 mL/min (70-130); Carbon Dioxide 32 mmol/L (22-29); Chloride 97 mmol/L (98-107); Estimated GFR 101; Globulin 2.7 g/dL (2.4-3.5); Glucose 175 mg/dL (70-105); Magnesium 2.1 mg/dL (1.6-2.6); Potassium 3.4 mmol/L (3.5-5.1); Protein, Total 5.4 g/dL (6.0-8.3); Sodium 136 mmol/L (136-145)
[2024-02-17 06:54] LABS: Anisocytosis SLIGHT = 6-15 cells HPF (0-5); Band 5 % (5-11); Eosinophils 2 % (0-10); Large Platelets 4.8 % (0-5); Lymphocytes 11 % (21-51); Macrocytosis SLIGHT = 6-15 cells HPF (0-5); Metamyelocyte 1 % (0-0); Monocytes 11 % (0-10); Myelocyte 1 % (0-0); Neutrophil 70 % (42-75); Nucleated RBC (Manual Ct) 2 % (0); Platelet Adequacy Comment Platelets Normal; Polychromasia MODERATE = 3-4 cells HPF (0-2); Reactive Lymphocytes 1 % (0-10)
[2024-02-17 08:13] LABS: Phosphorus 1.6 mg/dL (2.3-4.7)
[2024-02-17] MEDS: Potassium Bicarbonate/Cit Ac 20 MEQ TAB PO SCH (08:20)
[2024-02-17] MEDS: PHOS-NAK 1 PKT PACK PO SCH (10:00)
[2024-02-17] MEDS ORDERED: Magnevist 469MG/ML 20 ML VIAL ONE (10:23)
[2024-02-17] MEDS: HumaLOG 300 UNITS/3 ML VIAL SC PRN (13:36)
[2024-02-17 14:10] LABS: Amphetamine Not Detected (NotDetected); Barbiturates Screen Not Detected (NotDetected); Benzodiazepine Screen Not Detected (NotDetected); Cocaine Metabolite Screen Not Detected (NotDetected); Methadone Not Detected (NotDetected); Methamphetamine Not Detected (NotDetected); Opiate Screen Not Detected (NotDetected); Oxycodone Screen Not Detected (NotDetected); Phencyclidine (PCP) Not Detected (NotDetected); THC/Cannabinoid Screen Not Detected (NotDetected); Tricyclic Screen Not Detected (NotDetected)
[2024-02-17 14:47] LABS: INR-International Normal Ratio 1.4; Prothrombin Time 16.8 sec (12.0-14.7)
[2024-02-17 15:01] LABS: Iron 85 ug/dL (50-170); Iron Binding Capacity, Total 240 mcg/dL (265-497)
[2024-02-17 16:12] LABS: Hepatitis B Core IgM Abs Non-Reactive S/CO (NonReactive)
[2024-02-18 05:12] LABS: #Basophils 0.05 10x3/uL (0.0-0.2); %Basophils 0.4 % (0.0-1.0); %Eosinophils 1.4 % (0.0-10.0); %Lymphocytes 14.7 % (21.0-51.0); %Monocytes 19.3 % (0.0-10.0); %Neutrophils 62.6 % (42.0-75.0); Hematocrit 37.1 % (36.0-47.0); Hemoglobin 11.7 g/dL (12.0-16.0); Mean Corpuscular HGB CONC 31.5 g/dL (32.0-36.0); Mean Corpuscular Hemoglobin 34.4 pg (27.0-31.0); Mean Corpuscular Volume 109.1 fL (78.0-98.0); Platelet Count 228 10x3/uL (130-400); RBC Distribution Width 19.5 % (11.5-14.5)
[2024-02-18 05:25] LABS: ALT (SGPT) 21 U/L (8-55); AST (SGOT) 189 U/L (5-34); Albumin 2.9 g/dL (3.5-5.0); Alkaline Phosphatase 189 U/L (40-110); Anion Gap 16 mmol/L (10-20); BUN (Urea Nitrogen) 6 mg/dL (9.8-20.1); Bilirubin, Total 5.5 mg/dL (0.2-1.2); Calc. Creatinine Clearance 129 mL/min (70-130); Calcium 8.3 mg/dL (7.8-10.44); Carbon Dioxide 25 mmol/L (22-29); Chloride 96 mmol/L (98-107); Estimated GFR 103; Globulin 3.5 g/dL (2.4-3.5); Glucose 128 mg/dL (70-105); Phosphorus 1.9 mg/dL (2.3-4.7); Potassium 4.3 mmol/L (3.5-5.1); Protein, Total 6.4 g/dL (6.0-8.3); Sodium 133 mmol/L (136-145)
[2024-02-18] MEDS: PHOS-NAK 1 PKT PACK PO SCH (11:40)
[2024-02-18 16:14] LABS: Alpha-1-Antitrypsin 214 mg/dL (101-187)
[2024-02-18] MEDS ORDERED: Albuterol 200 PUFF INH INH PRN (16:53)
[2024-02-19 04:41] LABS: Mean Corpuscular HGB CONC 33.3 g/dL (32.0-36.0); Mean Corpuscular Volume 105.1 fL (78.0-98.0); Mean Platelet Volume 10.2 fL (7.4-10.4); Platelet Count 206 10x3/uL (130-400); RBC Distribution Width 19.4 % (11.5-14.5); Red Blood Cell (RBC) Count 3.14 mill/uL (4.20-5.40)
[2024-02-19 05:04] LABS: ALT (SGPT) 17 U/L (8-55); AST (SGOT) 154 U/L (5-34); Albumin 2.6 g/dL (3.5-5.0); Alkaline Phosphatase 174 U/L (40-110); Anion Gap 15 mmol/L (10-20); BUN (Urea Nitrogen) 7 mg/dL (9.8-20.1); Bilirubin, Total 5.3 mg/dL (0.2-1.2); Calc. Creatinine Clearance 134 mL/min (70-130); Calcium 8.4 mg/dL (7.8-10.44); Carbon Dioxide 26 mmol/L (22-29); Chloride 98 mmol/L (98-107); Estimated GFR 104; Glucose 154 mg/dL (70-105); Potassium 3.6 mmol/L (3.5-5.1); Protein, Total 5.6 g/dL (6.0-8.3); Sodium 135 mmol/L (136-145)
[2024-02-19 05:06] LABS: Phosphorus 2.3 mg/dL (2.3-4.7)
[2024-02-19 06:19] LABS: Anisocytosis MODERATE=16-30 cells HPF (0-5); Band 3 % (5-11); Eosinophils 3 % (0-10); Large Platelets 2.9 % (0-5); Lymphocytes 11 % (21-51); Macrocytosis MODERATE=16-30 cells HPF (0-5); Monocytes 21 % (0-10); Neutrophil 63 % (42-75); Platelet Adequacy Comment Platelets Normal; Polychromasia MODERATE = 3-4 cells HPF (0-2); Smudge Cells 8.7 %; Vacuoles SLIGHT
[2024-02-19 08:31] VITALS: BP 115/63; TEMP 98.6
[2024-02-19 12:16] LABS: Smooth Muscle Total ABS 7 Units (0-19)
[2024-02-23 11:59] LABS: ANA Symphony (Qualitative) Negative (Negative); ANA Symphony (Quantitative) 0.3 Ratio (< 0.7 Negative); EliA Vaculitis New Method **** NEW METHOD ****; Mitochondrial Ab 0.9 U/mL (<4 Negative); dsDNA IgG Antibody 4.2 IU/mL (<10 Negative)
== END 2024-02-19 12:00 | disposition home or self-care (01) | DRG 433 ==
LOC: ERS 16:37 → 2SW 21:15 → OBSVTOIN 02-16 08:36
PROVIDERS: ADMIT Internal Medicine; ATTEND Internal Medicine
DX: K74.60 Unspecified cirrhosis of liver (principal); E87.20 Acidosis, unspecified; I10 Essential (primary) hypertension; E11.40 Type 2 diabetes mellitus with diabetic neuropathy, unspecified; K21.9 Gastro-esophageal reflux disease without esophagitis; E66.9 Obesity, unspecified; E87.6 Hypokalemia; E83.42 Hypomagnesemia; E80.6 Other disorders of bilirubin metabolism; K59.00 Constipation, unspecified; Z88.2 Allergy status to sulfonamides; Z91.040 Latex allergy status; Z79.51 Long term (current) use of inhaled steroids; Z79.899 Other long term (current) drug therapy; Z90.49 Acquired absence of other specified parts of digestive tract; Z90.710 Acquired absence of both cervix and uterus; Z79.4 Long term (current) use of insulin; Z68.33 Body mass index [BMI] 33.0-33.9, adult
CPT/HCPCS: 36415; 36416; 74176; 74177; 74183; 80048; 80053; 80074; 80306; 81001; 82103; 82248; 82607; 82728; 83036; 83516; 83540; 83550; 83605; 83690; 83735; 84100; 84425; 85025; 85610; 86015; 86038; 86225; 86803; 87040; 93005; 96361; 96365; 96366; 96368; 96375; 96376; A9579; G0378; J1815; J1885; J2405; J3475; J3480; J7050; Q9967

== ENCOUNTER 2024-12-06 09:33 | Inpatient (IN) | payer OTHER, MEDICAID ==
[2024-12-06] MEDS ORDERED: cefTRIAXone (ROCEPHIN) 2 GM VIAL ONE (09:59)
[2024-12-06] MEDS ORDERED: Sodium Chloride 0.9% 100 ML ONE (10:00)
[2024-12-06] MEDS ORDERED: Pantoprazole 40 MG VIAL ONE ×2 (10:00→10:41)
[2024-12-06 10:18] LABS: Hemoglobin 10.1 g/dL (12.0-16.0); Mean Corpuscular HGB CONC 31.6 g/dL (32.0-36.0); Mean Corpuscular Hemoglobin 26.4 pg (27.0-31.0); Mean Corpuscular Volume 83.8 fL (78.0-98.0); Platelet Count 142 10x3/uL (130-400); Red Blood Cell (RBC) Count 3.82 mill/uL (4.20-5.40)
[2024-12-06] MEDS ORDERED: Promethazine HCl 25 MG/ML VIAL ONE (10:18)
[2024-12-06] MEDS ORDERED: Octreotide Acetate 500 MCG/ML VIAL ONE (10:27)
[2024-12-06 10:30] LABS: ALT (SGPT) 50 U/L (8-55); AST (SGOT) 243 U/L (5-34); Albumin 3.2 g/dL (3.4-4.8); Alkaline Phosphatase 189 U/L (40-110); Anion Gap 25 mmol/L (10-20); BUN (Urea Nitrogen) 5 mg/dL (9.8-20.1); Bilirubin, Total 2.1 mg/dL (0.2-1.2); Calc. Creatinine Clearance 0 mL/min (70-130); Carbon Dioxide 19 mmol/L (23-31); Chloride 93 mmol/L (98-107); Estimated GFR 86; Globulin 4.6 g/dL (2.4-3.5); Glucose 256 mg/dL (80-115); Lipase 17 U/L (8-78); Magnesium 1.3 mg/dL (1.6-2.6); Potassium 4.2 mmol/L (3.5-5.1); Protein, Total 7.8 g/dL (5.8-8.1); Sodium 133 mmol/L (136-145)
[2024-12-06] MEDS ORDERED: Octreotide Acetate 1,250 MCG in Sodium Chloride 0.9% 250 ML 250 ML IVPB SCH (10:30)
[2024-12-06] MEDS ORDERED: Pantoprazole 80 MG, Admixture Fee 1 EACH in Sodium Chloride 0.9% 100 ML IVPB SCH (10:30)
[2024-12-06 10:32] LABS: Acetaminophen Less than 10 mcg/mL (Less than 10); Alcohol Less than 10.0 mg/dL (Less than 10); Salicylate Less than 8.0 mg/dL (Less than 8.0)
[2024-12-06] MEDS ORDERED: Acetaminophen 325 MG TAB PO PRN (10:37)
[2024-12-06] MEDS ORDERED: Sodium Chloride 0.9% 100 ML BAG ONE (10:41)
[2024-12-06] MEDS ORDERED: Ipratropium/Albuterol 3 ML NEB NEB PRN (10:42)
[2024-12-06] MEDS ORDERED: Pantoprazole 80 MG in Sodium Chloride 0.9% 100 ML IVP SCH (10:45)
[2024-12-06] MEDS ORDERED: Magnesium 2 GM/50 ML BAG (IN WATER) ONE (10:47)
[2024-12-06 10:49] LABS: Bilirubin Negative (Negative); Blood, Urine Negative (Negative); CAUTI Indications for Culture Pelvic or flank pain; Clarity Clear (Clear); Glucose, Urine (Dipstick) 30 mg/dL (Negative); Ketone, Urine 10 mg/dL (Negative); Leukocyte 250 Leu/uL (Negative); Nitrite Negative (Negative); Protein, Urine (Dipstick) Negative (Neg-Trace); RBC/HPF 0-3 HPF (0-3); Squamous Epithelial None Seen HPF (0-3); Urobilinogen Normal mg/dL (Less than 2); WBC/HPF 0-3 HPF (0-3)
[2024-12-06 10:58] LABS: Analyzer IN Cardio ER; Base Excess -4.7 mEq/L (-2.0 to +3.0); Calcium, Ionized (venous) 0.99 mmol/L (1.16-1.32); Chloride (VBG) 95 mmol/L (98-106); Hematocrit-VBG 26 % (36.0-47.0); Potassium (VBG) 4.83 mmol/L (3.70-5.30); Sodium 130 mmol/L (133-146); pH (venous) 7.372 (7.32-7.43)
[2024-12-06] MEDS ORDERED: Insulin Lispro 100 UNIT/ML 10 ML VIAL SC PRN ×2 (10:59)
[2024-12-06] MEDS ORDERED: Glucagon 1 MG/ML KIT IM PRN (10:59)
[2024-12-06] MEDS ORDERED: Dextrose 5% in Water 1,000 ML IV PRN (10:59)
[2024-12-06] MEDS ORDERED: Dextrose 50% Abboject 50 ML SYRINGE SLOW IVP PRN (10:59)
[2024-12-06 11:00] LABS: Bacteria/HPF 2+ HPF (None Seen)
[2024-12-06 11:01] LABS: Urine Culture Reflex No No
[2024-12-06 11:16] LABS: INR-International Normal Ratio 1.7; PTT 37.4 sec (22.9-36.1); Prothrombin Time 19.8 sec (12.0-14.7)
[2024-12-06 11:24] LABS: Band 6 % (5-11); Lymphocytes 25 % (21-51); Monocytes 9 % (0-10); Neutrophil 60 % (42-75); Ovalocytes SLIGHT = 2-5 cells (100X) (0-1/hpf); Plasma Cells 0 % (0-0); Platelet Adequacy Comment Appears Adequate; Total Cell Count 100
[2024-12-06 12:33] LABS: #Basophils 0.03 10x3/uL (0.0-0.2); #Eosinophils Less than 0.03 10x3/uL (0.0-0.7); %Basophils 0.5 % (0.0-1.0); %Eosinophils 0.2 % (0.0-10.0); %Lymphocytes 8.2 % (21.0-51.0); %Monocytes 25.8 % (0.0-10.0); %Neutrophils 64.7 % (42.0-75.0); Hematocrit 27.3 % (36.0-47.0); Hemoglobin 8.4 g/dL (12.0-16.0); Mean Corpuscular HGB CONC 30.8 g/dL (32.0-36.0); Mean Corpuscular Hemoglobin 26.8 pg (27.0-31.0); Mean Corpuscular Volume 86.9 fL (78.0-98.0); Mean Platelet Volume 9.4 fL (7.4-10.4); Platelet Count 96 10x3/uL (130-400); RBC Distribution Width 22.1 % (11.5-14.5); Red Blood Cell (RBC) Count 3.14 mill/uL (4.20-5.40)
[2024-12-06] MEDS ORDERED: PHENYLEPHRINE-NS 100 MCG/ML 10 ML SYRINGE ONE (12:53)
[2024-12-06] MEDS ORDERED: SUCCINYLCHOLINE/SOD CL,ISO/PF 200 MG/10 ML SYRINGE FS ONE (12:53)
[2024-12-06] MEDS ORDERED: Lidocaine 1% PF 5 ML VIAL ONE (12:54)
[2024-12-06] MEDS ORDERED: ePHEDrine Sulfate 50 MG/10 ML VIAL ONE (12:54)
[2024-12-06] MEDS ORDERED: PROPOFOL 20 ML ONE (12:54)
[2024-12-06 13:10] LABS: Anisocytosis SLIGHT = 6-15 cells HPF (0-5); Band 10 % (5-11); Large Platelets 7.9 % (0-5); Lymphocytes 4 % (21-51); Monocytes 15 % (0-10); Neutrophil 70 % (42-75); Platelet Adequacy Comment Platelets Decreased; Polychromasia SLIGHT = 2-3 cells HPF (0-2); Reactive Lymphocytes 1 % (0-10); Smudge Cells 15.8 %
[2024-12-06 13:32] LABS: Lactic Acid 5.93 mmol/L (0.5-2.2)
[2024-12-06] MEDS ORDERED: Ondansetron PF 4 MG/2 ML Vial ONE (13:40)
[2024-12-06] MEDS ORDERED: fentaNYL 50 mcg/mL 1 mL Vial ONE ×2 (13:48→14:07)
[2024-12-06 15:27] VITALS: BMI 15.0
[2024-12-06] MEDS: Sodium Chloride 0.9% 1,000 ML IV SCH (15:45)
[2024-12-06] MEDS: Morphine 2 MG/ML VIAL SLOW IVP PRN (16:12)
[2024-12-06] MEDS: Ondansetron PF 4 MG/2 ML Vial IVP PRN (16:15)
[2024-12-06 17:19] LABS: Hematocrit 22.8 % (36.0-47.0); Hemoglobin 7.1 g/dL (12.0-16.0)
[2024-12-06 17:26] LABS: Lactic Acid 3.74 mmol/L (0.5-2.2)
[2024-12-06 17:30] LABS: Anion Gap 13 mmol/L (10-20); BUN (Urea Nitrogen) 5 mg/dL (9.8-20.1); Calc. Creatinine Clearance 43 mL/min (70-130); Calcium 7.6 mg/dL (7.8-10.44); Carbon Dioxide 23 mmol/L (23-31); Chloride 102 mmol/L (98-107); Estimated GFR 83; Glucose 227 mg/dL (80-115); Potassium 5.3 mmol/L (3.5-5.1); Sodium 133 mmol/L (136-145)
[2024-12-06] MEDS ORDERED: Promethazine HCl 12.5 MG in Sodium Chloride 0.9% 50 ML IVPB PRN (19:39)
[2024-12-06] MEDS: Ondansetron PF 4 MG/2 ML Vial IVP SCH (19:46)
[2024-12-06] MEDS: diphenhydrAMINE 25 MG CAP PO SCH (20:23)
[2024-12-06] MEDS: Pantoprazole 40 MG VIAL IVP SCH (22:16)
[2024-12-07] MEDS: Simethicone Chewable 80 MG TAB PO SCH (01:25)
[2024-12-07 05:22] LABS: Hematocrit 25.8 % (36.0-47.0); Hemoglobin 8.1 g/dL (12.0-16.0); Mean Corpuscular HGB CONC 31.4 g/dL (32.0-36.0); Mean Corpuscular Hemoglobin 27.1 pg (27.0-31.0); Mean Corpuscular Volume 86.3 fL (78.0-98.0); Mean Platelet Volume 10.3 fL (7.4-10.4); Platelet Count 86 10x3/uL (130-400); RBC Distribution Width 21.9 % (11.5-14.5); Red Blood Cell (RBC) Count 2.99 mill/uL (4.20-5.40)
[2024-12-07 05:26] LABS: INR-International Normal Ratio 1.7; Prothrombin Time 19.9 sec (12.0-14.7)
[2024-12-07] MEDS: Simethicone Chewable 80 MG TAB PO PRN (05:38)
[2024-12-07 05:39] LABS: ALT (SGPT) 41 U/L (8-55); AST (SGOT) 211 U/L (5-34); Albumin 2.6 g/dL (3.4-4.8); Alkaline Phosphatase 126 U/L (40-110); Anion Gap 12 mmol/L (10-20); BUN (Urea Nitrogen) 8 mg/dL (9.8-20.1); Bilirubin, Total 2.7 mg/dL (0.2-1.2); Calc. Creatinine Clearance 100 mL/min (70-130); Calcium 7.6 mg/dL (7.8-10.44); Carbon Dioxide 23 mmol/L (23-31); Chloride 101 mmol/L (98-107); Estimated GFR 88; Globulin 3.5 g/dL (2.4-3.5); Glucose 189 mg/dL (80-115); Potassium 4.4 mmol/L (3.5-5.1); Protein, Total 6.1 g/dL (5.8-8.1); Sodium 132 mmol/L (136-145)
[2024-12-07 05:42] LABS: Anisocytosis SLIGHT = 6-15 cells HPF (0-5); Band 5 % (5-11); Hypochromia SLIGHT = 6-15 cells HPF (0-5); Large Platelets 7.9 % (0-5); Lymphocytes 13 % (21-51); Monocytes 16 % (0-10); Neutrophil 65 % (42-75); Platelet Adequacy Comment Platelets Decreased; Polychromasia SLIGHT = 2-3 cells HPF (0-2); Smudge Cells 13.9 %
[2024-12-07] MEDS: Octreotide Acetate 1,250 MCG in Sodium Chloride 0.9% 250 ML 250 ML IVPB SCH (05:45)
[2024-12-07] MEDS: cefTRIAXone\\ROCEPHIN 1 GM in Sodium Chloride 0.9% 100 ML IVPB SCH (09:39)
[2024-12-07] MEDS: Furosemide 20 MG TAB PO SCH (12:42)
[2024-12-07] MEDS ORDERED: HYDROcodone/Acetaminophen 5/325 mg Tablet PO PRN (14:07)
[2024-12-07 15:54] VITALS: BMI 33.2
[2024-12-07] MEDS: Morphine 2 MG/ML VIAL SLOW IVP SCH (18:30)
[2024-12-07] MEDS: Lactulose 20 GM (30 mL) UDCUP PO SCH (20:34)
[2024-12-08 06:20] LABS: ALT (SGPT) 38 U/L (8-55); AST (SGOT) 204 U/L (5-34); Albumin 2.5 g/dL (3.4-4.8); Alkaline Phosphatase 125 U/L (40-110); Anion Gap 10 mmol/L (10-20); BUN (Urea Nitrogen) 5 mg/dL (9.8-20.1); Bilirubin, Total 1.9 mg/dL (0.2-1.2); Calc. Creatinine Clearance 105 mL/min (70-130); Calcium 7.6 mg/dL (7.8-10.44); Carbon Dioxide 28 mmol/L (23-31); Chloride 100 mmol/L (98-107); Estimated GFR 94; Globulin 3.4 g/dL (2.4-3.5); Glucose 190 mg/dL (80-115); Magnesium 1.7 mg/dL (1.6-2.6); Protein, Total 5.9 g/dL (5.8-8.1); Sodium 134 mmol/L (136-145)
[2024-12-08 06:45] LABS: Hematocrit 24.9 % (36.0-47.0); Hemoglobin 7.7 g/dL (12.0-16.0); Mean Corpuscular HGB CONC 30.9 g/dL (32.0-36.0); Mean Corpuscular Hemoglobin 26.8 pg (27.0-31.0); Mean Corpuscular Volume 86.8 fL (78.0-98.0); Mean Platelet Volume 10.2 fL (7.4-10.4); Platelet Count 106 10x3/uL (130-400); RBC Distribution Width 22.1 % (11.5-14.5); Red Blood Cell (RBC) Count 2.87 mill/uL (4.20-5.40)
[2024-12-08 07:35] LABS: Anisocytosis MODERATE=16-30 cells HPF (0-5); Band 8 % (5-11); Eosinophils 3 % (0-10); Hypochromia MODERATE=16-30 cells HPF (0-5); Large Platelets 14.4 % (0-5); Lymphocytes 16 % (21-51); Macrocytosis SLIGHT = 6-15 cells HPF (0-5); Metamyelocyte 4 % (0-0); Monocytes 14 % (0-10); Myelocyte 1 % (0-0); Neutrophil 54 % (42-75); Platelet Adequacy Comment Platelets Decreased; Polychromasia SLIGHT = 2-3 cells HPF (0-2); Smudge Cells 12.5 %
[2024-12-08] MEDS: Thiamine 100 MG TAB PO SCH (09:05)
[2024-12-08] MEDS: Furosemide 20 MG TAB PO SCH (09:05)
[2024-12-08] MEDS: Folic Acid 1 MG TAB PO SCH (09:06)
[2024-12-08] MEDS: Multivitamin W/ Minerals 1 TAB PO SCH (09:06)
[2024-12-08] MEDS: Morphine 2 MG/ML VIAL SLOW IVP SCH (15:14)
[2024-12-09 05:40] LABS: #Basophils 0.03 10x3/uL (0.0-0.2); %Basophils 0.5 % (0.0-1.0); %Eosinophils 1.5 % (0.0-10.0); %Lymphocytes 20.3 % (21.0-51.0); %Monocytes 27.5 % (0.0-10.0); %Neutrophils 49.5 % (42.0-75.0); Hematocrit 23.6 % (36.0-47.0); Hemoglobin 7.5 g/dL (12.0-16.0); Mean Corpuscular HGB CONC 31.8 g/dL (32.0-36.0); Mean Corpuscular Hemoglobin 27.6 pg (27.0-31.0); Mean Corpuscular Volume 86.8 fL (78.0-98.0); Mean Platelet Volume 9.9 fL (7.4-10.4); Platelet Count 117 10x3/uL (130-400); RBC Distribution Width 22.6 % (11.5-14.5); Red Blood Cell (RBC) Count 2.72 mill/uL (4.20-5.40)
[2024-12-09 05:53] LABS: ALT (SGPT) 32 U/L (8-55); AST (SGOT) 182 U/L (5-34); Albumin 2.3 g/dL (3.4-4.8); Alkaline Phosphatase 120 U/L (40-110); Anion Gap 10 mmol/L (10-20); BUN (Urea Nitrogen) 5 mg/dL (9.8-20.1); Bilirubin, Total 1.8 mg/dL (0.2-1.2); Calc. Creatinine Clearance 111 mL/min (70-130); Calcium 7.7 mg/dL (7.8-10.44); Carbon Dioxide 29 mmol/L (23-31); Chloride 102 mmol/L (98-107); Estimated GFR 99; Globulin 3.2 g/dL (2.4-3.5); Glucose 138 mg/dL (80-115); Potassium 3.5 mmol/L (3.5-5.1); Protein, Total 5.5 g/dL (5.8-8.1); Sodium 137 mmol/L (136-145)
[2024-12-09] MEDS: Multivitamin W/ Minerals 1 TAB PO SCH (21:00)
[2024-12-10] MEDS: Morphine 2 MG/ML VIAL SLOW IVP SCH (01:49)
[2024-12-10 05:34] LABS: Hematocrit 24.5 % (36.0-47.0); Hemoglobin 7.6 g/dL (12.0-16.0); Mean Corpuscular Volume 86.9 fL (78.0-98.0); Platelet Count 129 10x3/uL (130-400); RBC Distribution Width 22.6 % (11.5-14.5); Red Blood Cell (RBC) Count 2.82 mill/uL (4.20-5.40)
[2024-12-10 05:49] LABS: ALT (SGPT) 31 U/L (8-55); AST (SGOT) 173 U/L (5-34); Albumin 2.4 g/dL (3.4-4.8); Alkaline Phosphatase 116 U/L (40-110); Anion Gap 12 mmol/L (10-20); BUN (Urea Nitrogen) 6 mg/dL (9.8-20.1); Bilirubin, Total 2.2 mg/dL (0.2-1.2); Calc. Creatinine Clearance 138 mL/min (70-130); Calcium 7.9 mg/dL (7.8-10.44); Carbon Dioxide 28 mmol/L (23-31); Chloride 98 mmol/L (98-107); Estimated GFR 103; Globulin 3.5 g/dL (2.4-3.5); Glucose 142 mg/dL (80-115); Potassium 3.2 mmol/L (3.5-5.1); Protein, Total 5.9 g/dL (5.8-8.1); Sodium 135 mmol/L (136-145)
[2024-12-10 06:00] LABS: Anisocytosis SLIGHT = 6-15 cells HPF (0-5); Band 8 % (5-11); Eosinophils 1 % (0-10); Hypochromia SLIGHT = 6-15 cells HPF (0-5); Lymphocytes 16 % (21-51); Monocytes 13 % (0-10); Neutrophil 62 % (42-75); Platelet Adequacy Comment Platelets Normal; Polychromasia SLIGHT = 2-3 cells HPF (0-2)
[2024-12-10] MEDS: Potassium Chloride 20 MEQ TAB PO SCH (10:56)
[2024-12-10] MEDS: Sodium Chloride 0.9% 500 ML IV SCH (10:56)
[2024-12-10] MEDS: Potassium Bicarbonate/Cit Ac 20 MEQ TAB PO SCH (11:10)
[2024-12-10 15:41] VITALS: BP 118/60; TEMP 98.7
== END 2024-12-10 15:21 | disposition home or self-care (01) | DRG 432 ==
LOC: SUATTDRO 09:33 → ERS 09:33 → CCU 10:38 → T4-A 12-07 13:41
PROVIDERS: ADMIT Internal Medicine; ATTEND Internal Medicine
PROC: 06L38CZ Occlusion of Esophageal Vein with Extraluminal Device, Via Natural or Artificial Opening Endoscopic (ICD-10-PCS; principal; 2024-12-06)
PROC: 30233N1 Transfusion of Nonautologous Red Blood Cells into Peripheral Vein, Percutaneous Approach (ICD-10-PCS; 2024-12-06)
PROC: 3E033XZ Introduction of Vasopressor into Peripheral Vein, Percutaneous Approach (ICD-10-PCS; 2024-12-06)
DX: K70.30 Alcoholic cirrhosis of liver without ascites (principal); I85.01 Esophageal varices with bleeding; R57.8 Other shock; E87.20 Acidosis, unspecified; D62 Acute posthemorrhagic anemia; K92.0 Hematemesis; K70.10 Alcoholic hepatitis without ascites; I10 Essential (primary) hypertension; E78.5 Hyperlipidemia, unspecified; F10.10 Alcohol abuse, uncomplicated; K76.0 Fatty (change of) liver, not elsewhere classified; D63.8 Anemia in other chronic diseases classified elsewhere; E11.65 Type 2 diabetes mellitus with hyperglycemia; I95.9 Hypotension, unspecified; K76.82 Hepatic encephalopathy; E11.42 Type 2 diabetes mellitus with diabetic polyneuropathy; E80.6 Other disorders of bilirubin metabolism; I97.3 Postprocedural hypertension; R00.0 Tachycardia, unspecified; Z87.440 Personal history of urinary (tract) infections; Z87.442 Personal history of urinary calculi; Z90.710 Acquired absence of both cervix and uterus; Z88.2 Allergy status to sulfonamides; Z88.8 Allergy status to other drugs, medicaments and biological substances; Z91.040 Latex allergy status; Z90.49 Acquired absence of other specified parts of digestive tract; Z98.890 Other specified postprocedural states; Z79.899 Other long term (current) drug therapy; Y90.8 Blood alcohol level of 240 mg/100 ml or more
CPT/HCPCS: 36415; 36416; 36430; 74177; 76705; 80053; 80307; 81001; 82010; 82140; 82805; 83036; 83605; 83690; 83735; 84100; 85025; 85610; 85730; 86850; 86900; 86901; 87040; 93005; 94760; 96361; 96365; 96366; 96367; 96368; 96375; 96376; J0696; J1815; J2272; J2354; J2405; J2470; J2550; J2704; J3010; J3475; J7030; J7050; P9016

== ENCOUNTER 2025-01-12 14:50 | Inpatient (IN) | payer OTHER, MEDICAID ==
[2025-01-12 15:48] LABS: #Basophils 0.04 10x3/uL (0.0-0.2); %Basophils 0.8 % (0.0-1.0); %Lymphocytes 19.6 % (21.0-51.0); %Monocytes 10.8 % (0.0-10.0); %Neutrophils 66.4 % (42.0-75.0); Actual Bicarbonate (HCO3v) 23.2 mEq/L (22-28); Analyzer IN Cardio ER; Base Excess -2.1 mEq/L (-2.0 to +3.0); Calcium, Ionized (venous) 1.13 mmol/L (1.16-1.32); Chloride (VBG) 96 mmol/L (98-106); Hematocrit 27.8 % (36.0-47.0); Hematocrit-VBG 29 % (36.0-47.0); Hemoglobin 8.7 g/dL (12.0-16.0); Hemoglobin (Hb) 9.9 g/dL (11.7-16.0); Mean Corpuscular HGB CONC 31.3 g/dL (32.0-36.0); Mean Corpuscular Hemoglobin 24.6 pg (27.0-31.0); Mean Corpuscular Volume 78.5 fL (78.0-98.0); Mean Platelet Volume 9.2 fL (7.4-10.4); Platelet Count 148 10x3/uL (130-400); Potassium (VBG) 3.42 mmol/L (3.70-5.30); RBC Distribution Width 17.6 % (11.5-14.5); Red Blood Cell (RBC) Count 3.54 mill/uL (4.20-5.40); Sodium 132 mmol/L (133-146)
[2025-01-12 16:13] LABS: Troponin I Less than 0.010 ng/mL (< 0.028)
[2025-01-12 16:26] LABS: ALT (SGPT) 23 U/L (Less than 34); AST (SGOT) 58 U/L (11-34); Albumin 3.3 g/dL (3.1-4.5); Alkaline Phosphatase 139 U/L (40-110); Anion Gap 15 mmol/L (10-20); BUN (Urea Nitrogen) 4 mg/dL (9.8-20.1); Bilirubin, Total 2.1 mg/dL (0.3-1.2); Calc. Creatinine Clearance 0 mL/min (70-130); Carbon Dioxide 24 mmol/L (23-31); Chloride 97 mmol/L (98-107); Estimated GFR 100; Glucose 518 mg/dL (80-115); Lipase 51 U/L (8-78); Magnesium 1.4 mg/dL (1.6-2.6); Potassium 3.5 mmol/L (3.5-5.1); Protein, Total 7.3 g/dL (5.8-8.1); Sodium 132 mmol/L (136-145)
[2025-01-12] MEDS ORDERED: Magnesium 2 GM/50 ML BAG (IN WATER) ONE (17:06)
[2025-01-12] MEDS ORDERED: Dextrose 50% Abboject 50 ML SYRINGE SLOW IVP PRN (17:38)
[2025-01-12] MEDS ORDERED: HumaLOG 300 UNITS/3 ML VIAL SC PRN (17:38)
[2025-01-12] MEDS ORDERED: Dextrose 5% in Water 1,000 ML IV PRN (17:38)
[2025-01-12] MEDS ORDERED: Glucagon 1 MG/ML KIT IM PRN (17:38)
[2025-01-12] MEDS ORDERED: Insulin Regular, Human 100 UNIT/ML 10 ML VIAL ONE (17:50)
[2025-01-12] MEDS: Acetaminophen 325 MG TAB PO PRN (21:46)
[2025-01-12] MEDS: Lactulose 20 GM (30 mL) UDCUP PO SCH (21:46)
[2025-01-12] MEDS: Pantoprazole 40 MG DR.TAB PO SCH (21:46)
[2025-01-12] MEDS: Insulin Lispro 100 UNIT/ML 10 ML VIAL SC PRN (23:27)
[2025-01-13] MEDS: hydrOXYzine 10 MG TAB PO PRN (00:16)
[2025-01-13 00:18] VITALS: BMI 31.6
[2025-01-13 05:03] LABS: #Basophils Less than 0.03 10x3/uL (0.0-0.2); %Basophils 0.4 % (0.0-1.0); %Eosinophils 4.1 % (0.0-10.0); %Lymphocytes 28.4 % (21.0-51.0); %Monocytes 12.4 % (0.0-10.0); %Neutrophils 54.5 % (42.0-75.0); Hematocrit 23.5 % (36.0-47.0); Hemoglobin 7.3 g/dL (12.0-16.0); Mean Corpuscular HGB CONC 31.1 g/dL (32.0-36.0); Mean Corpuscular Hemoglobin 24.5 pg (27.0-31.0); Mean Corpuscular Volume 78.9 fL (78.0-98.0); Mean Platelet Volume 8.8 fL (7.4-10.4); Platelet Count 135 10x3/uL (130-400); RBC Distribution Width 17.8 % (11.5-14.5); Red Blood Cell (RBC) Count 2.98 mill/uL (4.20-5.40)
[2025-01-13 05:28] LABS: Anion Gap 12 mmol/L (10-20); BUN (Urea Nitrogen) Less than 4 mg/dL (9.8-20.1); Calc. Creatinine Clearance 122 mL/min (70-130); Calcium 8.6 mg/dL (7.8-10.44); Carbon Dioxide 24 mmol/L (23-31); Chloride 106 mmol/L (98-107); Estimated GFR 102; Glucose 264 mg/dL (80-115); Potassium 3.6 mmol/L (3.5-5.1); Sodium 138 mmol/L (136-145)
[2025-01-13] MEDS: Ondansetron PF 4 MG/2 ML Vial IVP PRN (07:00)
[2025-01-13] MEDS: Furosemide 20 MG TAB PO SCH (08:25)
[2025-01-13] MEDS: Folic Acid 1 MG TAB PO SCH (08:25)
[2025-01-13] MEDS: Thiamine 100 MG TAB PO SCH (08:25)
[2025-01-13] MEDS: Insulin Glargine 30 UNITS/0.3 ML VIAL SC SCH ×2 (08:25→21:24)
[2025-01-13] MEDS: Spironolactone 25 MG TAB PO SCH (08:25)
[2025-01-13] MEDS: Mometasone 100 MCG/Formoterol 5 MCG 120 PUFF INHALER INH SCH (08:36)
[2025-01-14] MEDS: diphenhydrAMINE 25 MG CAP PO SCH (03:34)
[2025-01-14 08:20] LABS: #Basophils 0.03 10x3/uL (0.0-0.2); %Basophils 0.6 % (0.0-1.0); %Eosinophils 2.9 % (0.0-10.0); %Lymphocytes 26.3 % (21.0-51.0); %Monocytes 9.9 % (0.0-10.0); %Neutrophils 60.1 % (42.0-75.0); Hematocrit 25.2 % (36.0-47.0); Hemoglobin 7.8 g/dL (12.0-16.0); Mean Corpuscular Hemoglobin 24.6 pg (27.0-31.0); Mean Corpuscular Volume 79.5 fL (78.0-98.0); Mean Platelet Volume 8.8 fL (7.4-10.4); Platelet Count 147 10x3/uL (130-400); RBC Distribution Width 17.7 % (11.5-14.5); Red Blood Cell (RBC) Count 3.17 mill/uL (4.20-5.40)
[2025-01-14] MEDS: Simethicone Chewable 80 MG TAB PO PRN (08:28)
[2025-01-14 08:52] LABS: Anion Gap 13 mmol/L (10-20); BUN (Urea Nitrogen) 7 mg/dL (9.8-20.1); Calc. Creatinine Clearance 102 mL/min (70-130); Calcium 8.8 mg/dL (7.8-10.44); Carbon Dioxide 22 mmol/L (23-31); Chloride 100 mmol/L (98-107); Estimated GFR 95; Glucose 403 mg/dL (80-115); Potassium 4.2 mmol/L (3.5-5.1); Sodium 131 mmol/L (136-145)
[2025-01-14] MEDS: Insulin Glargine 30 UNITS/0.3 ML VIAL SC SCH ×2 (11:36→21:24)
[2025-01-14] MEDS: Ondansetron ODT 4 MG TAB PO PRN (20:38)
[2025-01-15 05:40] LABS: #Basophils 0.03 10x3/uL (0.0-0.2); %Basophils 0.6 % (0.0-1.0); %Eosinophils 3.2 % (0.0-10.0); %Lymphocytes 26.8 % (21.0-51.0); %Neutrophils 54.2 % (42.0-75.0); Hematocrit 25.5 % (36.0-47.0); Hemoglobin 8.1 g/dL (12.0-16.0); Mean Corpuscular HGB CONC 31.8 g/dL (32.0-36.0); Mean Corpuscular Hemoglobin 24.3 pg (27.0-31.0); Mean Corpuscular Volume 76.3 fL (78.0-98.0); Mean Platelet Volume 9.1 fL (7.4-10.4); Platelet Count 146 10x3/uL (130-400); RBC Distribution Width 17.7 % (11.5-14.5); Red Blood Cell (RBC) Count 3.34 mill/uL (4.20-5.40)
[2025-01-15 05:49] LABS: Anion Gap 14 mmol/L (10-20); BUN (Urea Nitrogen) 9 mg/dL (9.8-20.1); Calc. Creatinine Clearance 99 mL/min (70-130); Calcium 9.4 mg/dL (7.8-10.44); Carbon Dioxide 23 mmol/L (23-31); Chloride 102 mmol/L (98-107); Estimated GFR 92; Glucose 263 mg/dL (80-115); Potassium 3.8 mmol/L (3.5-5.1); Sodium 135 mmol/L (136-145)
[2025-01-15 05:52] LABS: Hemoglobin A1c 8.3 % (4.0-6.0)
[2025-01-15] MEDS: Insulin Lispro 100 UNIT/ML 10 ML VIAL SC SCH (11:10)
[2025-01-16 12:03] VITALS: BP 124/74; TEMP 98.5
== END 2025-01-16 13:44 | disposition home or self-care (01) | DRG 639 ==
LOC: ERS 14:50 → OBS 17:40 → OBSVTOIN 01-13 13:56 → T4-B 01-13 21:00
PROVIDERS: ADMIT Internal Medicine; ATTEND Family Medicine
DX: E11.65 Type 2 diabetes mellitus with hyperglycemia (principal); D64.9 Anemia, unspecified; E83.42 Hypomagnesemia; D69.6 Thrombocytopenia, unspecified; K74.60 Unspecified cirrhosis of liver; Z96.41 Presence of insulin pump (external) (internal); Z88.8 Allergy status to other drugs, medicaments and biological substances; Z88.2 Allergy status to sulfonamides
CPT/HCPCS: 36415; 36416; 80048; 82010; 82805; 83036; 83690; 83735; 84484; 85025; 93005; 96374; 96375; G0378; J1815; J2405; J3475; Q0162